=== PATIENT | male | born 1960 | race Caucasian/White ===

== ENCOUNTER 2017-08-28 17:52 | Emergency (ER) | payer OTHER ==
[~2017-08-28] VITALS: Ht 177.8 cm; Wt 83.5 kg
[2017-08-28] MEDS ORDERED: CRUTCH2 XX (18:35)
[2017-08-28] MEDS ORDERED: Norco 5-325 Ta1 EACH PO (18:35)
== END 2017-08-28 19:12 | disposition home or self-care (01) ==
LOC: ER 17:52
DX: S92.355A Nondisplaced fracture of fifth metatarsal bone, left foot, initial encounter for closed fracture (principal); X58.XXXA Exposure to other specified factors, initial encounter
CPT/HCPCS: 29515; 73630; 99283-25